=== PATIENT | female | born 1960 | race Caucasian/White ===

== ENCOUNTER 2018-10-16 21:00 | Emergency (ER) | payer OTHER, MEDICAID, SELFPAY ==
--- NOTE | 2018-10-16 21:05 | ED_ITS ---
HPI - Female Genitourinary General Chief complaint: Urogenital-Female Stated complaint: Flank Pain Time Seen by Provider: 10/16/18 21:04 Source: patient Mode of arrival: EMS Limitations: no limitations History of Present Illness HPI Narrative: Patient is a 57-year-old female brought in by [facility] for concerns of right-sided flank pain. It was reported that the pain started within the past 24 hr. He has a fairly sudden onset. Patient states that it felt like prior kidney stone pain. Patient received 2 mg of Dilaudid, 15 mg of Toradol and 5 mg of Valium prior to arrival by EMS. Related Data Home Medications Medication Instructions Recorded Confirmed BusPIRone Hydrochloride (Buspirone 0 PO Q DAY #0 05/31/09 HCl) Ondansetron Hydrochloride- (Zofran) 8 mg PO PRN #0 05/31/09 Venlafaxine Hydrochloride (Effexor 175 mg PO Q DAY #0 05/31/09 Xr) [PROPANOLOL] Q DAY #0 05/31/09 alprazolam 0.25 mg PO BID #0 01/21/12 ibuprofen 800 mg PO PRN #0 09/15/12 omeprazole 40 mg PO QDAY #0 09/15/12 topiramate [Topamax] #0 09/15/12 Allergies Allergy/AdvReac Type Severity Reaction Status Date / Time PCN (PENICILLIN) Allergy Severe RASH, Uncoded 02/20/18 11:50 FEELS LIKE I'M GOING TO From COMPAZINE PO TAB 10 MG AdvReac Intermediate LOSE Uncoded 02/20/18 11:50 CONTROL OF JAW From STADOL AdvReac Intermediate HALLUCINATI Uncoded 02/20/18 11:50 ONS TETRACYCLINE AdvReac Intermediate DIARRHEA Uncoded 02/20/18 11:50 From TORADOL AdvReac Unknown SORE MOUTH Uncoded 02/20/18 11:50 Review of Systems Constitutional Denies fever(s) Cardiovascular Denies chest pain and Denies dyspnea Respiratory Denies dyspnea Gastrointestinal Gastrointestinal: Reports abdominal pain ( Right lower quadrant), Denies change in bowel habits, Denies diarrhea and Reports nausea Genitourinary Denies dysuria Integumentary/Breasts Denies rash Hematologic/Lymphatic Comments: not on anticoagulation PFSH Medical History Drug abuse (Acute) Multiple kidney stones (Acute) PTSD (post-traumatic stress disorder) (Acute) Surgical History No pertinent past surgical history (Acute) Social History Smoking Status: Current every day smoker Exam Initial Vital Signs Initial Vital Signs: Vital Signs Pulse Rate 87 10/16/18 21:25 Respiratory Rate 16 10/16/18 21:25 Blood Pressure 113/65 10/16/18 21:25 Pulse Oximetry 100 10/16/18 21:25 Const General: well developed, well groomed and No acute distress Orientation: alert, awake and oriented x3 HENMT Head: normal to inspection and normocephalic Resp Effort & Inspection: normal respiratory effort Cardio Rate: regular rate GI Inspection: non-distended Palpation: soft, No firm and No tender General: No CVA tenderness Skin Lesions: no lesions Rashes: no rashes Neuro General: alert, awake and oriented x3 Speech: speech normal Extrem General: normal to inspection and capillary refill normal Other: no gross deformities Psych Appearance: grossly normal and well kempt Course Orders Ordered: ED Orders 10/16/18 21:20 Complete Blood Count AUTO DIFF Stat Comprehensive Metabolic Panel Stat Ethanol (ETOH) Stat Lipase Stat 10/16/18 21:21 CT kidney ureter bladder (KUB) Stat Discontinued Medications Acetaminophen (Tylenol) 975 mg PO NOW ONE Stop: 10/16/18 22:30 Sodium Chloride (Normal Saline 0.9%) 1,000 mls @ 1,000 mls/hr IV BOLUS ONE Stop: 10/16/18 22:04 Last Admin: 10/16/18 21:30 Dose: 1,000 mls/hr Lidocaine HCl 5.1 ml/ Sodium (Chloride) 55.1 mls @ 330.6 mls/hr IV NOW ONE Stop: 10/16/18 21:52 Last Admin: 10/16/18 22:07 Dose: 330.6 mls/hr Ibuprofen (Advil) 800 mg PO NOW ONE Stop: 10/16/18 22:30 Vital Signs - 8 hr 10/16/18 21:25 Pulse Rate 87 Respiratory Rate 16 Blood Pressure 113/65 Pulse Oximetry 100 MDM - Female Genitourinary Lab Data Attestation: I reviewed the patient's lab results. Result diagrams: 10/16/18 21:20 10/16/18 21:20 Lab Results 10/16/18 10/16/18 Range/Units 21:20 21:20 WBC 7.0 (4.5-11.0) X10^3/uL RBC 3.81 L (4.0-5.2) X10^6/uL Hgb 13.0 (12.0-16.0) g/dL Hct 38.5 (36-46) % MCV 101.1 H (80-100) fL MCH 34.0 (26-34) PG MCHC 33.6 (30-36) % RDW 13.5 (11.6-14.8) % Plt Count 197 (150-400) X10^3/uL Neut % (Auto) 54.7 (50-75) % Lymph % (Auto) 33.4 (25-40) % [place] % (Auto) 9.6 (3-14) % Eos % (Auto) 1.1 L (2-4) % Baso % (Auto) 1.2 (0-2) % Neut # (Auto) 3800 (7249-2265) /uL Sodium 145 (137-145) mmol/L Potassium 3.3 L (3.4-5.1) mmol/L Chloride 103 (98-107) mmol/L Carbon Dioxide 30 (22-32) mmol/L BUN 8 (7-17) mg/dL Creatinine 0.50 L (0.52-1.04) mg/dL Estimated GFR > 60.0 (>60) mL/min BUN/Creatinine Ratio 16.0 (6-22) Glucose 119 H (70-100) mg/dL Calcium 7.7 L (8.4-10.2) mg/dL Total Bilirubin 0.4 (0.2-1.3) mg/dL AST 147 H (14-36) IU/L ALT 94 H (9-52) IU/L Alkaline Phosphatase 117 (38-126) U/L Total Protein 7.0 (6.3-8.2) g/dL Albumin 3.4 L (3.5-5.0) g/dL Globulin 3.6 (1.7-4.1) g/dL Albumin/Globulin Ratio 0.9 L (1.0-2.8) Lipase 506 H (23-300) U/L Ethyl Alcohol 229 mg/dL Urine Dip Bedside Urine Glucose Negative Bedside Urine Bilirubin - Negative Bedside Urine Ketone - Negative Urine Specific Funk 1.010 Bedside Urine Occult Blood - Negative Bedside Urine pH 6.0 Bedside Urine Protein - Negative Bedside Urine Urobilinogen - Negative Bedside Urine Nitrite - Negative Bedside Urine Leukocytes +/- [address] scan - abdomen: Radiologist's impression: [address] [address] [address] Scan Report Signed Patient: Stephani Syed EMR#: [id number] : 1960Acct:[id number] Age/Sex: 57 / FDate of Service: 10/16/18 Loc: ED Accession Number: [id number] Procedure: CT kidney ureter bladder (KUB) Ordering Provider: Myke Becerra D.O. PROCEDURE: CT KIDNEY URETER BLADDER (KUB) INDICATIONS: right-sided flank pain concern for stones TECHNIQUE: Noncontrast 5 mm thick sections acquired from the diaphragms to the symphysis. 5 mm thick coronal and sagittal reformats were then performed. For radiation dose reduction, the following was used: automated exposure control, adjustment of mA and/or kV according to patient size. COMPARISON: None. FINDINGS: Image quality: Excellent. Lung bases: Lung bases are clear. Heart size is normal. Small hiatal hernia. Urinary system: There is a probable 1 mm stone in the distal right ureter. No hydronephrosis or hydroureter. Both kidneys are normal in size. No kidney stones. No perinephric fat stranding. Bladder wall thickness is normal; no calcified bladder stones. Other solid organs: Small foci of calcification in the liver are likely old granulomas. Liver is normal in size. Gallbladder is normal. Pancreas is normal in contours. Spleen is normal in size. No adrenal nodules. Peritoneum and bowel: Unenhanced bowel loops demonstrate normal wall thickness and caliber. Normal appendix. No free fluid or air. Nodes and vessels: No retroperitoneal or mesenteric adenopathy by size criteria. Aorta and inferior vena cava are normal in caliber. Abdominal wall: No ventral hernias. Pelvis: No free pelvic fluid. No inguinal hernias or adenopathy. Bones: No suspicious bony lesions. Mild levoscoliosis. Mild vertebral body compression fracture of L4, likely non-acute. There are degenerative changes in lumbar spine. Moderate central canal stenosis at L3-L4. Grade 1 anterolisthesis of L4 on L5 and grade 1 retrolisthesis of L1 on L2 and L2 on L3. IMPRESSION: 1. Probable 1 mm stone in the distal right ureter. No hydronephrosis. No other renal calculi are identified. 2. Normal appendix. 3. Small hiatal hernia. 4. Remote granulomatous disease of liver. 5. Mild compression fracture of L4, likely non-acute. 3. Degenerative changes in lumbar spine with moderate central canal stenosis at L3-L4. Dictated by: Sancho Jeter M.D. on 10/16/2018 at 22:07 Approved by: Sancho Jeter M.D. on 10/16/2018 at 22:19 [facility] Narrative Medical decision making narrative: patient without signs urinary tract infection. Normal creatinine. Has a 1 mm right-sided ureteral stone. Received multiple doses of pain medication prior to arrival here in the ER. Her alcohol level was also elevated. She was given lidocaine here in the ER. She was offered Tylenol and Motrin but refused. I did tell her that given her elevated alcohol level and the amount of medications that she received prior to arrival here in the ER that I was uncomfortable giving her more mind-altering substances. She became very upset when I told her this. No indication for antibiotics. I told her that I would give her other non opioid pain medication however she refused this. She stated you need to treat my pain I informed her multiple times that I was uncomfortable doing this given her elevated alcohol level. She stated I am not drunk she stated multiple times I am not a drug seeker I informed her that I was not accusing her being a drug seeker But I did feel uncomfortable giving her more mind-altering substances. There is no indication for emergent urologic consultation. No indication for emergent surgical consultation. She was given return precautions. She was very upset and called me a ass hole . Discharge Plan Departure Patient Disposition: Home Clinical Impression: Renal colic on right side, Alcohol intoxication Instructions: Kidney Stones -- Adult, DI for Alcohol Abuse Activity Restrictions/Additional Instructions: your alcohol level was elevated today so that limited our ability to give you other mind-altering medications. You did receive a significant amount of pain medications prior to arrival here in the ER. Unfortunately I do not feel comfortable given you these medications because of your alcohol level. You do have a small right-sided kidney stone which will pass on its own. You can take ibuprofen and Tylenol. I would contact your primary care doctor tomorrow for follow-up. You can return to the emergency department for any new symptoms, fevers, inability to urinate, or any other concerning symptoms. no driving for the next 24 hr or in the future if you decide to partake in intoxicating substances. Prescriptions: No Action BusPIRone Hydrochloride (Buspirone HCl) PO Q DAY Qty: 0 RF: 0 Ondansetron Hydrochloride- (Zofran) 8 mg PO PRN Qty: 0 RF: 0 Venlafaxine Hydrochloride (Effexor Xr) 175 mg PO Q DAY Qty: 0 RF: 0 [PROPANOLOL] Q DAY Qty: 0 RF: 0 alprazolam 0.25 MG tablet 0.25 mg PO BID Qty: 0 RF: 0 omeprazole 40 MG capsule,delayed release(DR/EC) 40 mg PO QDAY Qty: 0 RF: 0 topiramate [Topamax] 100 MG tablet Qty: 0 RF: 0 ibuprofen 800 MG tablet 800 mg PO PRN Qty: 0 RF: 0
[2018-10-16 21:15] VITALS: BP 113/65; PULSE 81; RESP 14; O2SAT 100
--- NOTE | 2018-10-16 21:21 | DI.CT.S_ITS ---
PROCEDURE: CT KIDNEY URETER BLADDER (KUB) INDICATIONS: right-sided flank pain concern for stones TECHNIQUE: Noncontrast 5 mm thick sections acquired from the diaphragms to the symphysis. 5 mm thick coronal and sagittal reformats were then performed. For radiation dose reduction, the following was used: automated exposure control, adjustment of mA and/or kV according to patient size. COMPARISON: None. FINDINGS: Image quality: Excellent. Lung bases: Lung bases are clear. Heart size is normal. Small hiatal hernia. Urinary system: There is a probable 1 mm stone in the distal right ureter. No hydronephrosis or hydroureter. Both kidneys are normal in size. No kidney stones. No perinephric fat stranding. Bladder wall thickness is normal; no calcified bladder stones. Other solid organs: Small foci of calcification in the liver are likely old granulomas. Liver is normal in size. Gallbladder is normal. Pancreas is normal in contours. Spleen is normal in size. No adrenal nodules. Peritoneum and bowel: Unenhanced bowel loops demonstrate normal wall thickness and caliber. Normal appendix. No free fluid or air. Nodes and vessels: No retroperitoneal or mesenteric adenopathy by size criteria. Aorta and inferior vena cava are normal in caliber. Abdominal wall: No ventral hernias. Pelvis: No free pelvic fluid. No inguinal hernias or adenopathy. Bones: No suspicious bony lesions. Mild levoscoliosis. Mild vertebral body compression fracture of L4, likely non-acute. There are degenerative changes in lumbar spine. Moderate central canal stenosis at L3-L4. Grade 1 anterolisthesis of L4 on L5 and grade 1 retrolisthesis of L1 on L2 and L2 on L3. IMPRESSION: 1. Probable 1 mm stone in the distal right ureter. No hydronephrosis. No other renal calculi are identified. 2. Normal appendix. 3. Small hiatal hernia. 4. Remote granulomatous disease of liver. 5. Mild compression fracture of L4, likely non-acute. 3. Degenerative changes in lumbar spine with moderate central canal stenosis at L3-L4. Dictated by: Sancho Jeter M.D. on 10/16/2018 at 22:07 Approved by: Sancho Jeter M.D. on 10/16/2018 at 22:19
[2018-10-16 21:25] VITALS: BP 113/65; PULSE 87; RESP 16; TEMP 36.7; O2SAT 100; BMI 25.0
[2018-10-16] MEDS: SODIUM CHLORIDE 0.9% 1,000 ML 1000 ML IV (21:30)
[2018-10-16 21:31] LABS: Add Manual Diff / Slide Review NO; Basophils Percent Auto 1.2 % (0-2); Eosinophils Percent Auto 1.1 % (2-4); Hematocrit 38.5 % (36-46); Lymphocytes Percent Auto 33.4 % (25-40); Mean Corpuscular HGB Conc 33.6 % (30-36); Mean Corpuscular Volume 101.1 fL (80-100); Monocytes Percent Auto 9.6 % (3-14); Neutrophils Absolute Auto 3800 /uL (3000-5900); Neutrophils Percent Auto 54.7 % (50-75); Platelet Count 197 X10^3/uL (150-400); Red Blood Cell Count 3.81 X10^6/uL (4.0-5.2); Red Cell Distribution Width 13.5 % (11.6-14.8)
[2018-10-16 21:41] LABS: Alanine Aminotransferase 94 IU/L (9-52); Albumin 3.4 g/dL (3.5-5.0); Albumin Globulin Ratio 0.9 (1.0-2.8); Alkaline Phosphatase 117 U/L (38-126); Aspartate Aminotransferase 147 IU/L (14-36); Bilirubin Total 0.4 mg/dL (0.2-1.3); Blood Urea Nitrogen 8 mg/dL (7-17); Calcium 7.7 mg/dL (8.4-10.2); Carbon Dioxide 30 mmol/L (22-32); Chloride 103 mmol/L (98-107); Estimated Glomerular Filt Rate > 60.0 mL/min (>60); Ethanol (ETOH) 229 mg/dL; Globulin 3.6 g/dL (1.7-4.1); Glucose 119 mg/dL (70-100); HEMOLYSIS < 15 (0-50); Lipase 506 U/L (23-300); Potassium 3.3 mmol/L (3.4-5.1); Sodium 145 mmol/L (137-145)
[2018-10-16] MEDS: LIDOCAINE 2% 5.1 ML in SODIUM CHLORIDE 0.9% 50 ML 330.6 ML IV (22:07)
== END 2018-10-16 22:40 | disposition home or self-care (01) ==
PROVIDERS: Emergency Provider Emergency Medicine; Family Provider Family Medicine Geriatric Medicine; PCP Physician Assistant
DX: N23 Unspecified renal colic (principal); F10.929 Alcohol use, unspecified with intoxication, unspecified
CPT/HCPCS: 36415; 74176; 80053; 80320; 81003; 83690; 85025; 96361; 96365; 99283; 99284